=== PATIENT | female | born 1965 | race Caucasian/White ===

== ENCOUNTER 2023-06-15 03:51 | Inpatient (IN) | payer BC ==
[2023-06-15] VITALS (13 sets, daily range): BP systolic 116–144; BP diastolic 66–86; PULSE 60–95; RESP 16–18; TEMP 97.3–97.5; O2SAT 93–98
[~2023-06-15] VITALS: Ht 160 cm; Wt 65.9 kg
[2023-06-15 05:11] LABS: MEAN CORPUSCULAR HGB CONC 34.1 g/dL (33.0-36.5); WHITE BLOOD COUNT 10.6 X10'3 (4.5-11.0)
[2023-06-15 05:13] LABS: BASOPHILS % (AUTO) 0.5 % (0-1); EOSINOPHILS % (AUTO) 0.1 % (0-6); HEMATOCRIT 43.4 % (35.0-45.0); HEMOGLOBIN 14.8 g/dl (12.0-16.0); LYMPHOCYTES % (AUTO) 19.3 % (21-51); MEAN CORPUSCULAR HEMOGLOBIN 30.1 PG (27.0-31.0); MEAN CORPUSCULAR VOLUME 88.2 FL (78-98); MEAN PLATELET VOLUME 8.7 FL (7.4-10.4); MONOCYTES # (AUTO) 0.5 X10'3 (0-0.9); MONOCYTES % (AUTO) 5.1 % (2-12); NEUTROPHILS # (AUTO) 7.9 X10'3 (1.8-7.7); PLATELET COUNT 262 X10'3 (140-440); RED BLOOD COUNT 4.92 X10'6 (4.20-5.60); RED CELL DISTRIBUTION WIDTH 13.1 % (11.5-14.5)
[2023-06-15 05:23] LABS: ALANINE AMINOTRANSFERASE 26 U/L (12-78); ALBUMIN 3.6 G/DL (3.4-5.0); ALBUMIN/GLOBULIN RATIO 0.9 (1.1-1.5); ALKALINE PHOSPHATASE 129 IU/L (46-116); ANION GAP 8 (8-16); ASPARTATE AMINO TRANSFERASE 13 U/L (10-37); BILIRUBIN,TOTAL 0.4 MG/DL (0.1-1.0); BLOOD UREA NITROGEN 11 MG/DL (7-18); BUN/CREATININE RATIO 12.1 (10.0-20.0); CALCIUM 9.3 MG/DL (8.5-10.1); CHLORIDE 103 MMOL/L (99-107); CREATININE 0.91 MG/DL (0.40-0.90); GLUCOSE 130 MG/DL (70-104); POTASSIUM 3.8 MMOL/L (3.5-5.1); SODIUM 139 MMOL/L (135-145); TOTAL CARBON DIOXIDE 27.8 MMOL/L (24-32); TOTAL PROTEIN 7.5 G/DL (6.4-8.2); eCRCL 54 ML/MIN; eGFR 63 ML/MIN
[2023-06-15 05:32] LABS: LIPASE 25 U/L (16-77)
[2023-06-15] MEDS ORDERED: ondansetron inj. 24 MG in normal saline 250ml IV soln 228 ML IV PRN (06:20)
--- NOTE | 2023-06-15 06:23 | NUR ---
Assumed care of patient. Pt appears uncomfortable in bed and is complaining of pain and nausea. Ambulated to bathroom to attempt urine sample.
--- NOTE | 2023-06-15 06:37 | NUR ---
Pt vomitting and reporting abdominal pain. Dr. Bañuelos updated. MD at bedside.
[2023-06-15 06:47] LABS: BILIRUBIN,URINE NEGATIVE (Neg); CLARITY,URINE CLEAR (Clear); COLOR,URINE YELLOW (Yellow); GLUCOSE, URINE NEGATIVE (Neg); KETONES,URINE NEGATIVE (Neg); LEUKOCYTE ESTERASE ,URINE NEGATIVE (Neg); NITRITES, URINE NEGATIVE (Neg); OCCULT BLOOD,URINE NEGATIVE (Neg); PROTEIN,URINE 30 mg/dl (Neg); URINE HCG NEGATIVE (NEG); UROBILINOGEN,URINE 0.2 E.U/dL (0.2-1.0)
[2023-06-15 06:55] LABS: UA COLLECTION TYPE CLN CATCH MIDSTREAM
[2023-06-15] MEDS ORDERED: normal saline 1000ML IV soln IVB ONE (06:55)
[2023-06-15] MEDS ORDERED: ketorolac tromethamine 15mg/ml inj. IV ONE (06:55)
[2023-06-15] MEDS ORDERED: ondansetron/PF 4mg/2ml inj IV ONE ×2 (06:55→16:20)
[2023-06-15 06:56] LABS: RBC,URINE 0-2 /HPF (0-2); WBC,URINE 0-4 /HPF (0-4)
[2023-06-15 06:57] LABS: BACTERIA,URINE FEW /HPF (Neg); MUCUS STRANDS FEW /LPF (Neg); SQUAMOUS EPITHELIAL CELL,UR FEW /LPF (FEW)
[2023-06-15] MEDS ORDERED: pantoprazole 40mg IV 80 MG in normal saline 100ml IV soln 100 ML IV ONE (08:00)
[2023-06-15 08:59] LABS: ETHANOL < 10 MG/DL (<10)
--- NOTE | 2023-06-15 09:13 | NUR ---
ambulated to bathroom. Dr. Sanders at bedside. Pt to go to OR for surgery later today.
[2023-06-15] MEDS ORDERED: magnesium 2GM in 50ml NS 50 ML IV PRN (09:50)
[2023-06-15] MEDS ORDERED: acetaminophen 325mg tablet PO PRN (09:50)
[2023-06-15] MEDS ORDERED: potassium Cl 20 mEq SR tablet PO PRN ×2 (09:50)
[2023-06-15] MEDS ORDERED: magnesium hydroxide 30ml (MOM) UD suspension PO PRN (09:50)
[2023-06-15] MEDS ORDERED: HYDROcodone/acetaminophen 10/325mg tab PO PRN (09:50)
[2023-06-15] MEDS ORDERED: potassium Cl 40MEQ/1/2NS 520ml 520 ML IV PRN (09:50)
[2023-06-15] MEDS ORDERED: magnesium 4gm in 100ml NS 100 ML IV PRN (09:50)
[2023-06-15] MEDS ORDERED: mag hydrox/Alum hydrox/simeth 30ml oral suspension PO PRN (09:50)
[2023-06-15] MEDS ORDERED: ondansetron/PF 4mg/2ml inj IV PRN ×2 (09:50→16:25)
[2023-06-15] MEDS: normal saline 1000ml 1,000 ML IV SCH ×2 (10:47→20:50)
[2023-06-15] MEDS: HYDROmorphone inj. 0.5 MG/0.5 ML DISP.SYRIN IV PRN ×2 (10:48→14:34)
[2023-06-15] MEDS ORDERED: MAGN250T11 PO (12:38)
[2023-06-15] MEDS ORDERED: OMEP20CA16 PO (12:38)
[2023-06-15] MEDS ORDERED: ASPI-1071 PO (12:38)
[2023-06-15] MEDS ORDERED: aspirin 81mg, enteric-coated 1 TAB TABLET.DR PO PRN (12:50)
[2023-06-15] MEDS ORDERED: BUPIVAcaine 0.5% inj/PF 30 ML ONE (14:40)
--- NOTE | 2023-06-15 15:34 | NUR ---
pt transported to OR. Belongings sent with patient.
[2023-06-15] MEDS ORDERED: hydrALAZINE 20mg/ml inj. IV PRN (16:25)
[2023-06-15] MEDS ORDERED: labetalol 20mg/4ml (5mg/ml) syringe IV PRN (16:25)
[2023-06-15] MEDS ORDERED: ringers solution, lacted 1,000 ML IV SCH (16:25)
[2023-06-15] MEDS ORDERED: proCHLORperazine 10 MG/2 ml inj IV PRN (16:25)
[2023-06-15] MEDS ORDERED: proMETHazine 25mg rectal suppository RC PRN (16:25)
[2023-06-15] MEDS ORDERED: morphine 4 MG/ML inj SYRINge IV PRN (16:25)
[2023-06-15] MEDS ORDERED: fentaNYL/PF 50MCG/1 ML 2ML syringe IV PRN ×2 (16:25)
[2023-06-15] MEDS ORDERED: morphine 2 MG/ML inj. syringe IV PRN (16:25)
[2023-06-15] MEDS ORDERED: midazolam 1 mg/ML 2ml injection ONE (16:26)
[2023-06-15] MEDS ORDERED: meperidine/PF 50mg/ml syringe ONE (16:26)
[2023-06-15] MEDS ORDERED: LIDOcaine 2% (20mg/ml) 5ml vial ONE (16:27)
[2023-06-15] MEDS ORDERED: propofol inj 20 ML IV ONE (16:27)
[2023-06-15] MEDS ORDERED: dexamethasone sod phosphate 10mg/ml inj ONE (16:28)
[2023-06-15] MEDS ORDERED: glycopyrrolate 0.2mg/ml inj ONE (16:28)
[2023-06-15] MEDS ORDERED: metoclopramide 5 mg/ml inj ONE (16:28)
[2023-06-15] MEDS ORDERED: desflurane 240ml liquid inh. IH ONE (16:28)
[2023-06-15] MEDS ORDERED: rocuronium 10mg/ml inj IV ONE (16:28)
[2023-06-15] MEDS ORDERED: neostigmine methylsulfate 1 MG/ML 10ml vial ONE (16:28)
[2023-06-15] MEDS ORDERED: sevoflurane 250ml liquid IH ONE (16:28)
[2023-06-15] MEDS ORDERED: ceFAZolin 1000mg inj ONE ×2 (16:41)
[2023-06-15] MEDS ORDERED: sugammadex 200mg/2ml injection IV ONE (17:11)
[2023-06-15] MEDS ORDERED: BUPIVAcaine 0.5% inj/PF 30 ml vial IJ ONE (17:18)
--- NOTE | 2023-06-15 17:58 | NUR ---
Received from OR via SURGICAL BED , accompanied by Anesthesiologist BEATA and report given by Anesthesiolgist. PATIENT WITH 20G PIV IN RIGHT UE RUNNING LR AT 100. PATIENT DENIES PAIN AT THIS TIME. PATIENT WITH 4 LAP SITES TO ABDOMEN THAT ARE CDI. PATIENT WITH 10L MASK ON WITH 98% SATURATIONS. Addendum: 06/15/23 at 1813 by Gus De La Cruz RN, RN Amended: Links added.
--- NOTE | 2023-06-15 18:48 | NUR ---
ALL CRITERIA FOR TRANSFER BACK TO PATIENT ROOM HAS BEEN MET. VSS. PAIN AT A TOLERABLE LEVEL AND DRESSINGS SAME UPON ARRIVAL. REPORT GIVEN AND ALL QUESTIONS ANSWERED. RN PRESENT OR AWARE THAT PATIENT HAS ARRIVED. BED LOW. CALL LIGHT PRESENT. 2 RAILS UP. CARE TURNED OVER TO KRISTA WARREN FOLLOWING REPORT. BELONGINGS PLACED AT BEDSIDE (2 BAGS AND ONE SET OF ROSES). RN PRESENT TO ASSESS SURGICAL SITES (WHICH ARE STILL CDI). PAIN CONTROLLED AND VSS. Addendum: 06/15/23 at 1901 by Gus Bailey - KRISTA RN Amended: Links added.
--- NOTE | 2023-06-15 18:57 | NUR ---
RECIEVED REPORT FROM RECOVERY ROOM NURSE KWABENA, PER HU BRANCH, VS CHECKED AND W/ O2 @3LPM.
[2023-06-15] MEDS: K and/or MAG REPLACEMENT MC SCH (20:00)
[2023-06-15] MEDS: enoxaparin 40mg/0.4ml syringe SQ SCH (20:44)
[2023-06-15] MEDS: docusate sod 100mg capsule PO SCH (20:45)
[2023-06-16] VITALS (11 sets, daily range): BP systolic 98–142; BP diastolic 59–76; PULSE 61–85; RESP 16–18; TEMP 97–98.8; O2SAT 91–97
[2023-06-16] MEDS: HYDROcodone/acetaminophen 5mg/325mg tablet PO PRN (01:38)
[2023-06-16] MEDS: normal saline 1000ml 1,000 ML IV SCH ×2 (05:58→16:11)
--- NOTE | 2023-06-16 06:25 | NUR ---
Problems reprioritized. Patient report given, questions answered & plan of care reviewed with KRISTA NGUYEN.
--- NOTE | 2023-06-16 06:28 | NUR ---
Received report, following new hire KRISTA Gutierrez who will be caring for patient.
--- NOTE | 2023-06-16 06:33 | NUR ---
Dilaudid dose yesterday not assessed at 1524. Brenda VELASCO
--- NOTE | 2023-06-16 06:34 | NUR ---
report received from ruma Colby. Brenda VELASCO
[2023-06-16 07:09] LABS: BASOPHILS % (AUTO) 0.1 % (0-1); EOSINOPHILS % (AUTO) 0 % (0-6); HEMATOCRIT 39.2 % (35.0-45.0); HEMOGLOBIN 13.3 g/dl (12.0-16.0); LYMPHOCYTES # (AUTO) 1.7 X10'3 (1.1-4.8); LYMPHOCYTES % (AUTO) 9.7 % (21-51); MEAN CORPUSCULAR HEMOGLOBIN 30.1 PG (27.0-31.0); MEAN CORPUSCULAR HGB CONC 33.9 g/dL (33.0-36.5); MEAN CORPUSCULAR VOLUME 88.8 FL (78-98); MEAN PLATELET VOLUME 9.3 FL (7.4-10.4); MONOCYTES # (AUTO) 1.2 X10'3 (0-0.9); MONOCYTES % (AUTO) 6.8 % (2-12); NEUTROPHILS % (AUTO) 83.4 % (42-75); PLATELET COUNT 210 X10'3 (140-440); RED BLOOD COUNT 4.41 X10'6 (4.20-5.60); RED CELL DISTRIBUTION WIDTH 13.2 % (11.5-14.5)
[2023-06-16 07:20] LABS: ALANINE AMINOTRANSFERASE 109 U/L (12-78); ALBUMIN 2.7 G/DL (3.4-5.0); ALBUMIN/GLOBULIN RATIO 0.8 (1.1-1.5); ALKALINE PHOSPHATASE 95 IU/L (46-116); ANION GAP 5 (8-16); ASPARTATE AMINO TRANSFERASE 96 U/L (10-37); BILIRUBIN,TOTAL 0.7 MG/DL (0.1-1.0); BLOOD UREA NITROGEN 8 MG/DL (7-18); BUN/CREATININE RATIO 8.8 (10.0-20.0); CALCIUM 8.6 MG/DL (8.5-10.1); CHLORIDE 104 MMOL/L (99-107); CREATININE 0.91 MG/DL (0.40-0.90); GLUCOSE 136 MG/DL (70-104); MAGNESIUM 1.6 MG/DL (1.5-2.4); SODIUM 137 MMOL/L (135-145); TOTAL CARBON DIOXIDE 27.7 MMOL/L (24-32); TOTAL PROTEIN 6.1 G/DL (6.4-8.2); eCRCL 54 ML/MIN; eGFR 63 ML/MIN
[2023-06-16] MEDS ORDERED: non-formulary drug (Magnesium Oxide (Magnesium) 1 TAB) PO SCH (08:00)
[2023-06-16] MEDS: HYDROmorphone inj. 0.5 MG/0.5 ML DISP.SYRIN IV PRN ×2 (08:12→19:05)
[2023-06-16] MEDS: docusate sod 100mg capsule PO SCH ×2 (08:12→20:01)
[2023-06-16] MEDS: pantoprazole 40mg Tablet.DR PO SCH (08:12)
[2023-06-16] MEDS: K and/or MAG REPLACEMENT MC SCH ×2 (08:38→20:00)
[2023-06-16] MEDS: acetaminophen 325mg tablet PO PRN ×2 (10:26→16:43)
--- NOTE | 2023-06-16 18:15 | NUR ---
Patient in room ORTHO 4015. I have received report from KRISTA STILL and had the opportunity to ask questions and assume patient care.
[2023-06-16] MEDS: enoxaparin 40mg/0.4ml syringe SQ SCH (20:00)
[2023-06-16] MEDS: piperacillin/tazo 4.5gm/100ml 100 ML IV SCH (20:01)
[2023-06-17] MEDS: HYDROmorphone inj. 0.5 MG/0.5 ML DISP.SYRIN IV PRN (01:56)
[2023-06-17] MEDS: acetaminophen 325mg tablet PO PRN (04:27)
[2023-06-17 06:00] VITALS: BP 109/67; PULSE 63; RESP 17; TEMP 97.3; O2SAT 90
[2023-06-17] MEDS: normal saline 1000ml 1,000 ML IV SCH (06:02)
--- NOTE | 2023-06-17 06:29 | NUR ---
Problems reprioritized. Patient report given, questions answered & plan of care reviewed with DEUCE CORTEZ.
--- NOTE | 2023-06-17 06:40 | NUR ---
Patient in room ORTHO 4015. I have received report from Desiree VELASCO and had the opportunity to ask questions and assume patient care.
[2023-06-17 07:11] LABS: BASOPHILS % (AUTO) 0.3 % (0-1); EOSINOPHILS % (AUTO) 0.1 % (0-6); HEMATOCRIT 35.8 % (35.0-45.0); LYMPHOCYTES % (AUTO) 15.3 % (21-51); MEAN CORPUSCULAR HEMOGLOBIN 29.9 PG (27.0-31.0); MEAN CORPUSCULAR HGB CONC 33.5 g/dL (33.0-36.5); MEAN CORPUSCULAR VOLUME 89.3 FL (78-98); MEAN PLATELET VOLUME 9.2 FL (7.4-10.4); MONOCYTES # (AUTO) 1.3 X10'3 (0-0.9); MONOCYTES % (AUTO) 10.3 % (2-12); NEUTROPHILS # (AUTO) 9.6 X10'3 (1.8-7.7); PLATELET COUNT 173 X10'3 (140-440); RED BLOOD COUNT 4.01 X10'6 (4.20-5.60); RED CELL DISTRIBUTION WIDTH 13.4 % (11.5-14.5); WHITE BLOOD COUNT 12.9 X10'3 (4.5-11.0)
[2023-06-17 07:34] LABS: ALANINE AMINOTRANSFERASE 139 U/L (12-78); ALBUMIN 2.3 G/DL (3.4-5.0); ALBUMIN/GLOBULIN RATIO 0.7 (1.1-1.5); ALKALINE PHOSPHATASE 94 IU/L (46-116); ANION GAP 6 (8-16); ASPARTATE AMINO TRANSFERASE 89 U/L (10-37); BILIRUBIN,TOTAL 1.1 MG/DL (0.1-1.0); BLOOD UREA NITROGEN 10 MG/DL (7-18); BUN/CREATININE RATIO 11.5 (10.0-20.0); CALCIUM 8.4 MG/DL (8.5-10.1); CHLORIDE 103 MMOL/L (99-107); CREATININE 0.87 MG/DL (0.40-0.90); GLUCOSE 97 MG/DL (70-104); MAGNESIUM 1.6 MG/DL (1.5-2.4); POTASSIUM 3.4 MMOL/L (3.5-5.1); SODIUM 136 MMOL/L (135-145); TOTAL CARBON DIOXIDE 27.2 MMOL/L (24-32); TOTAL PROTEIN 5.8 G/DL (6.4-8.2); eCRCL 57 ML/MIN; eGFR 66 ML/MIN
[2023-06-17] MEDS: pantoprazole 40mg Tablet.DR PO SCH (07:54)
[2023-06-17] MEDS: docusate sod 100mg capsule PO SCH (07:54)
[2023-06-17] MEDS: K and/or MAG REPLACEMENT MC SCH (08:08)
[2023-06-17] MEDS: piperacillin/tazo 4.5gm/100ml 100 ML IV SCH (08:29)
[2023-06-17] MEDS: HYDROcodone/acetaminophen 5mg/325mg tablet PO PRN (09:19)
[2023-06-17 10:00] VITALS: BP 119/75; PULSE 62; RESP 16; TEMP 97.8; O2SAT 97
[2023-06-17 10:19] VITALS: RESP 16
[2023-06-17] MEDS ORDERED: HYDR-3964 PO (11:27)
[2023-06-17] MEDS ORDERED: POTA-207 PO (11:27)
--- NOTE | 2023-06-17 14:01 | NUR ---
Patient discharged home. alert walking on own. tolerating food. all paper work signed. all patient belongings left with patient.
== END 2023-06-17 12:48 | disposition home or self-care (01) | DRG 419 ==
LOC: ER 03:52 → ED HOLD 09:51 → ORTHO 4S 18:45
PROVIDERS: ADMIT Family Medicine; ATTEND Family Medicine
PROC: 0FT44ZZ Resection of Gallbladder, Percutaneous Endoscopic Approach (ICD-10-PCS; principal; 2023-06-15 16:28)
DX: K80.00 Calculus of gallbladder with acute cholecystitis without obstruction (principal); G43.909 Migraine, unspecified, not intractable, without status migrainosus; R03.0 Elevated blood-pressure reading, without diagnosis of hypertension; E87.6 Hypokalemia; Z87.11 Personal history of peptic ulcer disease; Z88.5 Allergy status to narcotic agent; Z82.49 Family history of ischemic heart disease and other diseases of the circulatory system; Z98.51 Tubal ligation status
CPT/HCPCS: 96365; 96375; 99285; Z7506; Z7508; 36415; 76700; 80053; 80320; 81001; 81025; 83690; 83735; 85025; 93005; A4215; A4615; A4618; A7000; C9113; G0378; J0690; J1100; J1170; J1650; J1885; J2175; J2250; J2405; J2543; J2704; J2710; J2765; J3490; J7030; J7120; S0020